=== PATIENT | female | born 1935 | race Caucasian/White ===

== ENCOUNTER 2018-04-05 09:22 | Inpatient (IN) | payer OTHER ==
[~2018-04-05] VITALS: Ht 165.1 cm; Wt 59.0 kg
[~2018-04-05 09:22] MED LIST: ATENOLOL25 MG PO; B12-METHYL1000 MC1 PO; COLACE100 MG PO; CRANBERRY FRUI425 MG PO; DEC150 PO; DEMECLOCYCLINE300 MG GT; FERRALET 901 TAB PO; FERROUS SULFAT325 M2 PO; FOLIC ACID1 MG PO; HUMULIN R100 U/1 M1; HYDROCHLOROTH12.5 M2 PO; LEVAQUIN750 MG PO; LOVASTATIN20 MG PO; METFORMIN HCL850 MG PO; NAMENDA10 M2 PO; PREDNISONE50 MG PO; PYR100 PO; PYRIDIUM200 MG PO; ZESTRIL20 MG PO
[2018-04-05 10:03] LABS: BASOPHIL % 0.2 % (0-2); PLATELET COUNT 136 x10^3mcL (130-400); RED CELL DISTRIBUTION WIDTH 13.5 % (11.5-14.5)
[2018-04-05 10:05] LABS: CALCIUM 8.8 mg/dL (8.5-10.1); CHLORIDE SERUM 105 mmol/L (98-107); CREATININE SERUM 1.1 mg/dL (0.6-1.0); GLUCOSE SERUM 130 mg/dL (74-106); POTASSIUM SERUM 3.2 mmol/L (3.5-5.1); SODIUM SERUM 133 mmol/L (136-145)
[2018-04-05 10:10] LABS: ALBUMIN 2.5 g/dL (3.4-5.0); ALKALINE PHOSPHATASE 88 U/L (46-116); ALT/SGPT 12 U/L (14-59); AST/SGOT 11 U/L (15-37); BILIRUBIN TOTAL 0.21 mg/dL (0.20-1.00); TOTAL PROTEIN, SERUM 6.5 g/dL (6.4-8.2)
[2018-04-05 16:50] VITALS: BP 174/57
[2018-04-05 17:10] VITALS: BP 183/71
[2018-04-05 18:49] VITALS: BP 166/66
[2018-04-05 21:42] VITALS: BP 192/89
[2018-04-06 01:00] VITALS: BP 165/65
[2018-04-06 05:18] VITALS: BP 150/58
[2018-04-06 06:02] LABS: BASOPHIL % 0.2 % (0-2); PLATELET COUNT 146 x10^3mcL (130-400); RED CELL DISTRIBUTION WIDTH 13.4 % (11.5-14.5)
[2018-04-06 06:19] LABS: CALCIUM 8.7 mg/dL (8.5-10.1); CARBON DIOXIDE 26.5 mmol/L (21-32); CHLORIDE SERUM 111 mmol/L (98-107); CREATININE SERUM 0.9 mg/dL (0.6-1.0); GLUCOSE SERUM 113 mg/dL (74-106); POTASSIUM SERUM 3.8 mmol/L (3.5-5.1); SODIUM SERUM 146 mmol/L (136-145)
[2018-04-06 09:20] VITALS: BP 166/71
[2018-04-06 12:44] VITALS: BP 148/45
[2018-04-06 14:59] VITALS: Ht 165.1 cm; Wt 59.0 kg
[2018-04-06 17:30] VITALS: BP 153/60
[2018-04-06 20:51] VITALS: BP 150/84
[2018-04-07 05:49] VITALS: BP 157/53
[2018-04-07 06:46] LABS: UA SPECIFIC GRAVITY >=1.030 (1.005-1.035); microscopic required? YES; urine erythrocyte 1+ (NEGATIVE)
[2018-04-07 07:01] LABS: CALCIUM 8.5 mg/dL (8.5-10.1); CARBON DIOXIDE 25.2 mmol/L (21-32); CHLORIDE SERUM 109 mmol/L (98-107); GLUCOSE SERUM 135 mg/dL (74-106); POTASSIUM SERUM 3.9 mmol/L (3.5-5.1); SODIUM SERUM 143 mmol/L (136-145)
[2018-04-07 07:47] LABS: BASOPHIL % 0.1 % (0-2); PLATELET COUNT 154 x10^3mcL (130-400)
[2018-04-07 08:16] LABS: RED CELL DISTRIBUTION WIDTH 16.9 % (11.5-14.5)
[2018-04-07 09:48] VITALS: BP 159/47
[2018-04-07 14:10] VITALS: BP 131/61
[2018-04-07 18:31] VITALS: BP 161/56
[2018-04-07 19:40] VITALS: BP 153/60
[2018-04-08 05:37] VITALS: BP 140/51
[2018-04-08 06:27] LABS: BASOPHIL % 0.2 % (0-2); PLATELET COUNT 144 x10^3mcL (130-400)
[2018-04-08 06:36] LABS: RED CELL DISTRIBUTION WIDTH 17.5 % (11.5-14.5)
[2018-04-08 06:39] LABS: CALCIUM 8.6 mg/dL (8.5-10.1); CARBON DIOXIDE 27.3 mmol/L (21-32); CHLORIDE SERUM 109 mmol/L (98-107); CREATININE SERUM 1.1 mg/dL (0.6-1.0); GLUCOSE SERUM 152 mg/dL (74-106); POTASSIUM SERUM 3.9 mmol/L (3.5-5.1); SODIUM SERUM 142 mmol/L (136-145)
[2018-04-08 09:03] VITALS: BP 145/52
[2018-04-08 12:31] VITALS: BP 159/46
[2018-04-08 17:41] VITALS: BP 153/60
[2018-04-08 20:59] VITALS: BP 150/55
[2018-04-09 06:11] VITALS: BP 179/70
[2018-04-09 07:41] LABS: CALCIUM 8.2 mg/dL (8.5-10.1); CARBON DIOXIDE 26.3 mmol/L (21-32); CHLORIDE SERUM 108 mmol/L (98-107); CREATININE SERUM 0.9 mg/dL (0.6-1.0); GLUCOSE SERUM 135 mg/dL (74-106); POTASSIUM SERUM 3.8 mmol/L (3.5-5.1); SODIUM SERUM 140 mmol/L (136-145)
[2018-04-09 07:59] LABS: BASOPHIL % 0.3 % (0-2); PLATELET COUNT 153 x10^3mcL (130-400)
[2018-04-09 09:06] VITALS: BP 134/62
[2018-04-09 12:42] VITALS: BP 146/54
[2018-04-09 13:51] VITALS: BP 146/54
[2018-04-09 17:02] VITALS: BP 134/57
[2018-04-09 21:12] VITALS: BP 126/67
[2018-04-10 05:17] VITALS: BP 150/50
[2018-04-10 08:53] VITALS: BP 157/64
[2018-04-10 10:47] VITALS: BP 157/64
== END 2018-04-10 11:47 | DRG 956 ==
LOC: ED 09:22 → DU 13:35
PROVIDERS: Emergency Medicine; Internal Medicine; Neuromusculoskeletal Medicine, Sports Medicine
PROC: 0QS704Z Reposition Left Upper Femur with Internal Fixation Device, Open Approach (ICD-10-PCS; principal; 2018-04-07 10:30)
DX: S72.042A Displaced fracture of base of neck of left femur, initial encounter for closed fracture (principal); S06.5X9A Traumatic subdural hemorrhage with loss of consciousness of unspecified duration, initial encounter; E44.0 Moderate protein-calorie malnutrition; E87.6 Hypokalemia; E86.0 Dehydration; E11.9 Type 2 diabetes mellitus without complications; M19.90 Unspecified osteoarthritis, unspecified site; F03.90 Unspecified dementia, unspecified severity, without behavioral disturbance, psychotic disturbance, mood disturbance, and anxiety; I11.9 Hypertensive heart disease without heart failure; I25.10 Atherosclerotic heart disease of native coronary artery without angina pectoris; E78.5 Hyperlipidemia, unspecified; Z68.21 Body mass index [BMI] 21.0-21.9, adult; Z79.84 Long term (current) use of oral hypoglycemic drugs; Z87.01 Personal history of pneumonia (recurrent); Z82.49 Family history of ischemic heart disease and other diseases of the circulatory system; W19.XXXA Unspecified fall, initial encounter; Y92.89 Other specified places as the place of occurrence of the external cause
CPT/HCPCS: 76001; 82962; 97110-GP; 97530-GP; J1720; J1956; J2060; J3010; J3480; J3490; J7040; J7050; P9016; Q0163